=== PATIENT | male | born 1965 | race Caucasian/White ===

== ENCOUNTER 2020-02-09 12:59 | Observation (INO) ==
[2020-02-09] MEDS ORDERED: HYDROmorphone 2 MG/1 ML VIAL IV STA ×2 (13:10→14:55)
[2020-02-09] MEDS ORDERED: ONDANSETRON 4 MG/2 ML VIAL IV STA ×2 (13:10→14:55)
[2020-02-09] MEDS ORDERED: SODIUM CHLORIDE 0.9% 1,000 ML IV STA ×2 (13:10→18:04)
[2020-02-09 13:45] LABS: Basophils % 0.3 % (0.0-0.8); Eosinophils # 0.3 10*3/uL (0.0-0.87); Eosinophils % 2.2 % (0.00-10.9); Hematocrit 39.5 VOL% (42.0-52.0); Immature Granulocytes % 0.5 %; Immature Granulocytes Absolute 0.06 #; Lymphocytes # 0.8 10*3/uL (1.4-4.0); Lymphocytes % 6.7 % (21.2-54.2); Mean Corpuscular HGB Conc 32.9 GM/DL (32-36); Mean Corpuscular Volume 84.8 FL (87-102); Mean Platelet Volume 11.8 FL (9.6-12.0); Monocytes % 6.3 % (1.7-12.7); Platelet Count 169 T/CUMM (130-400); Red Blood Count 4.66 MC/CUMM (3.8-5.5); Red Cell Distribution Width 13.2 % (9.3-17.3); White Blood Count 11.5 T/CUMM (4-12)
[2020-02-09] MEDS ORDERED: ceFAZolin 1,000 MG in SYRINGE 1 EACH IV STA ×2 (14:50→14:53)
[2020-02-09 14:51] LABS: Calcium 9.3 MG/DL (8.5-10.1); Osmolality,Calculated 270.2 MOS/KG (273-304)
[2020-02-09] MEDS ORDERED: POTASSIUM CHLORIDE INJ 10 MEQ in SODIUM CHLORIDE 0.9% 1,000 ML IV SCH (15:00)
[2020-02-09] MEDS ORDERED: ceFAZolin 1,000 MG VIAL ONE (16:09)
[2020-02-09] MEDS ORDERED: DEXAMETHASONE 4 MG/1 ML VIAL ONE (17:05)
[2020-02-09] MEDS ORDERED: FUROSEMIDE 20 MG/2 ML VIAL ONE (17:05)
[2020-02-09] MEDS ORDERED: SEVOFLURANE 1 UNIT/15 MINUTE INH ONE (17:05)
[2020-02-09] MEDS ORDERED: propofoL 200 MG/20 ML VIAL IV ONE (17:05)
[2020-02-09] MEDS ORDERED: LIDOCAINE 2% 5 ML VIAL ONE (17:05)
[2020-02-09] MEDS ORDERED: NALOXONE 0.4 MG/ML VIAL ONE (17:05)
[2020-02-09] MEDS ORDERED: fentaNYL 100 MCG/2 ML VIAL ONE (17:05)
[2020-02-09] MEDS ORDERED: SUCCINYLCHOLINE 200 MG/10 ML VIAL ONE (17:06)
[2020-02-09] MEDS ORDERED: LACTATED RINGERS 1,000 ML IV ONE (17:06)
[2020-02-09] MEDS ORDERED: ONDANSETRON 4 MG/2 ML VIAL ONE (17:06)
[2020-02-09] MEDS ORDERED: ACETAMINOPHEN 325 MG TABLET PO PRN (17:18)
[2020-02-09] MEDS ORDERED: ONDANSETRON 4 MG/2 ML VIAL IV PRN (17:18)
[2020-02-09] MEDS ORDERED: HYDROmorphone 2 MG/1 ML VIAL IV PRN (17:18)
[2020-02-09] MEDS ORDERED: MEPERIDINE 25 MG/1 ML VIAL IV PRN (17:22)
[2020-02-09] MEDS ORDERED: MEPERIDINE 25 MG/1 ML VIAL ONE (17:26)
[2020-02-09] MEDS ORDERED: cefTRIAXone 1,000 MG in SODIUM CHLORIDE 0.9% 100 ML IV STA (17:46)
[2020-02-09 19:18] LABS: Apearance,Urine CLEAR (Clear); Bilirubin,Urine Negative (Negative); Blood, Urine Large mg/dL (Negative); Glucose,Urine (UA) Negative (Negative); Hyaline Casts,Urine 4 /LPF (0-3); Ketones,Urine Negative (Negative); Nitrite,Urine Negative (Negative); Protein,Urine Negative; RBC,Urine 270 /HPF (0-4); Urine Color Colorless (Yellow); Urine Specific Gravity 1.004 (1.001-1.035); Urine Urobilinogen < 2.0 EU/DL (0.2-1.0); WBC,Urine 1 /HPF (0-6)
[2020-02-09] MEDS: SODIUM CHLORIDE 0.9% 1,000 ML IV SCH (20:26)
[2020-02-09] MEDS: DOCUSATE SODIUM 100 MG CAPSULE PO SCH ×2 (21:56→22:02)
[2020-02-09] MEDS: POTASSIUM CHLORIDE INJ 10 MEQ in SODIUM CHLORIDE 0.9% 1,000 ML IV SCH (21:56)
[2020-02-09] MEDS: ENOXAPARIN 30 MG/0.3 ML SYRINGE SUBCUT SCH (21:56)
[2020-02-10] MEDS: SODIUM CHLORIDE 0.9% 1,000 ML IV SCH ×3 (01:54→17:30)
[2020-02-10] MEDS: POTASSIUM CHLORIDE INJ 10 MEQ in SODIUM CHLORIDE 0.9% 1,000 ML IV SCH ×5 (05:09→21:23)
[2020-02-10 05:42] LABS: Calcium 8.9 MG/DL (8.5-10.1)
[2020-02-10] MEDS: DOCUSATE SODIUM 100 MG CAPSULE PO SCH ×3 (10:07→21:21)
[2020-02-10] MEDS: PANTOPRAZOLE 40 MG TABLET PO SCH (10:07)
[2020-02-10] MEDS: cefTRIAXone 1,000 MG in SYRINGE 1 EACH IV SCH (10:08)
[2020-02-10] MEDS: ENOXAPARIN 30 MG/0.3 ML SYRINGE SUBCUT SCH (21:22)
[2020-02-11] MEDS: SODIUM CHLORIDE 0.9% 1,000 ML IV SCH ×2 (05:12→09:30)
[2020-02-11] MEDS: POTASSIUM CHLORIDE INJ 10 MEQ in SODIUM CHLORIDE 0.9% 1,000 ML IV SCH (05:21)
[2020-02-11 05:34] LABS: Basophils % 0.6 % (0.0-0.8); Eosinophils # 0.2 10*3/uL (0.0-0.87); Eosinophils % 3.5 % (0.00-10.9); Hematocrit 37.1 VOL% (42.0-52.0); Hemoglobin 11.9 GM/DL (14.0-18.0); Immature Granulocytes % 0.3 %; Immature Granulocytes Absolute 0.02 #; Lymphocytes # 1.7 10*3/uL (1.4-4.0); Lymphocytes % 26.1 % (21.2-54.2); Mean Corpuscular HGB Conc 32.1 GM/DL (32-36); Mean Corpuscular Volume 86.7 FL (87-102); Mean Platelet Volume 12.6 FL (9.6-12.0); Monocytes % 7.4 % (1.7-12.7); Neutrophils % 62.1 % (38.7-73.9); Platelet Count 145 T/CUMM (130-400); Red Blood Count 4.28 MC/CUMM (3.8-5.5); Red Cell Distribution Width 13.9 % (9.3-17.3); White Blood Count 6.4 T/CUMM (4-12)
[2020-02-11 07:14] LABS: Calcium 8.8 MG/DL (8.5-10.1); Osmolality,Calculated 278.5 MOS/KG (273-304)
[2020-02-11] MEDS: PANTOPRAZOLE 40 MG TABLET PO SCH (09:05)
[2020-02-11] MEDS: cefTRIAXone 1,000 MG in SYRINGE 1 EACH IV SCH (09:06)
[2020-02-11] MEDS: DOCUSATE SODIUM 100 MG CAPSULE PO SCH (09:06)
[2020-02-11 11:28] VITALS: BP 144/80
== END 2020-02-11 13:25 | disposition home or self-care (01) ==
LOC: EDBD → EDUNIT# → N.ED 12:59 → N.EDINP 12:59 → N.3E 19:49
PROVIDERS: ADMIT Internal Medicine; ATTEND Internal Medicine